=== PATIENT | male | born 1970 | race Caucasian/White ===

== ENCOUNTER → 2020-01-08 10:49 | Outpatient (CLI) | payer OTHER, SELFPAY ==
[2020-01-09 15:36] LABS: COVID19 Sendout Not Detected (Not Detected)
== END ==
PROVIDERS: Visit Provider Physician Assistant
DX: Z11.59 Encounter for screening for other viral diseases (principal)
CPT/HCPCS: 87635

== ENCOUNTER → 2022-08-08 12:11 | Outpatient (CLI) | payer OTHER, SELFPAY ==
--- NOTE | 2022-08-09 12:06 | PM.PFT.1 ---
Pulmonary Function Test Referral & Results Date Patient Seen: 08/08/22 Results: The spirometry demonstrates an FVC of 4.23 L which is 84% of predicted. The FEV1 was measured at 3.61 L which is 93% of predicted. The FEV1/FVC ratio was 85 which is 109% of predicted. Following the administration of bronchodilator there was no appreciable change. Lung volumes show an SVC of 4.57 L which is 94% of predicted. The diffusing capacity was measured at 34.94 which is 110% of predicted. The maximum voluntary ventilation was normal Interpretation: This study demonstrates normal pulmonary function
== END ==
PROVIDERS: PCP Registered Nurse; Referring Provider Registered Nurse; Visit Provider Registered Nurse
DX: R05.8 Other specified cough (principal); J98.8 Other specified respiratory disorders
CPT/HCPCS: 94060; 94726; 94729

== ENCOUNTER → 2022-08-17 11:13 | Outpatient (CLI) | payer OTHER, SELFPAY ==
--- NOTE | 2022-08-17 | DI.RAD.S_ITS ---
PROCEDURE: XR LUMBAR SPINE 2-3V INDICATIONS: LOW BACK PAIN TECHNIQUE: 3 views of the lumbar spine were acquired. COMPARISON: None. FINDINGS: Bones: 5 [id number] vertebrae are present. There is normal bony alignment. No vertebral body compression fractures. No suspicious bony lesions. Soft tissues: Overlying bowel gas pattern is normal. No suspicious soft tissue calcifications. IMPRESSION: Normal lumbar spine radiographs Approved by: Maximus Mcmullen M.D. on 08/17/2022 at 12:48
== END ==
PROVIDERS: PCP Registered Nurse; Referring Provider Chiropractor; Visit Provider Chiropractor
DX: M54.50 Low back pain, unspecified (principal)
CPT/HCPCS: 72100

== ENCOUNTER → 2022-09-10 08:55 | Outpatient (CLI) | payer OTHER, SELFPAY ==
--- NOTE | 2022-09-10 | DI.CT.S_ITS ---
PROCEDURE: CT ABDOMEN PELVIS W CON INDICATIONS: Pure hyperglyceridemia TECHNIQUE: After the administration of oral and intravenous contrast, axial sections were acquired from the lung bases to the pubic symphysis. Coronal and sagittal reformats were performed. For radiation dose reduction, the following was used: automated exposure control, adjustment of mA and/or kV according to patient size. COMPARISON:None. FINDINGS: Lung bases: No pleural effusion. ABDOMEN: Liver: Unremarkable. Gallbladder: Unremarkable. Biliary ducts: Unremarkable. Pancreas: Unremarkable. Spleen: Unremarkable. Adrenal Glands: Unremarkable. Kidneys and Ureters: No hydronephrosis. Stomach and Bowel: No bowel obstruction. Mild predominantly sigmoid colonic diverticulosis without evidence of acute diverticulitis. Peritoneum: No abnormal intraperitoneal fluid. No free air. Abdominal Nodes: No retroperitoneal or mesenteric adenopathy by size criteria. Vessels: Aorta and inferior vena cava are normal in size. PELVIS: Pelvic Organs: Unremarkable. Bladder: Unremarkable. Pelvic Nodes: No enlarged lymph nodes. Bones: Multilevel degenerative change of the visualized spine. IMPRESSION: No acute abnormality identified within the abdomen or pelvis. Dictated by: Hal Denney M.D. on 09/10/2022 at 14:58 Approved by: Hal Denney M.D. on 09/10/2022 at 15:22
== END ==
PROVIDERS: PCP Registered Nurse; Referring Provider Registered Nurse; Visit Provider Registered Nurse
DX: E78.1 Pure hyperglyceridemia (principal); K57.30 Diverticulosis of large intestine without perforation or abscess without bleeding; R74.8 Abnormal levels of other serum enzymes; E11.9 Type 2 diabetes mellitus without complications; R79.89 Other specified abnormal findings of blood chemistry
CPT/HCPCS: 74177; Q9967

== ENCOUNTER → 2022-09-19 13:29 | Outpatient (CLI) | payer OTHER, SELFPAY ==
--- NOTE | 2022-10-18 14:59 | DIAB.MNT ---
Initial Diabetes Medical Nutrition Therapy Assessment Name: Raul Conley Date: 09/19/22 Time: 205-315p Dx: Type II Diabetes Provider: Malcolm Carter presents for initial DM visit. Newly Dx with T2DM. Recent hgA1c of 7.6% per labs and TG of 1997. 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 Started end of last marcelle. Avoids CHO before bed due to h/o weight gain with large pasta portions pre bed. Taking above UL doses of vitamin D daily. Diet Recall: 4p: 2c cereal with 1c milk OR granola bar and berries 10p: nothing or grapes or fruit/ran bar 12-1a: cereal or leftovers: 1.5-2c pasta with sauce and chx 4a: cereal or tacos or burritos or pro with veg 730a: soups or salad Monica: water, tea/coffee, likes juice Anthropometrics: Ht: 5'11 Wt: 223# 08/2022 Weight history: reported UBW of 215-225# Physical Activity: PT for back, walks dog 60 min daily, stationary bike 45-60 min twice per week. Self-Monitoring Blood Glucose: None, no supplies. Diabetes Medications: 1500mg Metformin HS currently (rx up to 2000mg) Pertinent Labs: 08/2022 HgA1c: 7.6% ; cholesterol: 396 H T H Past Medical History: reported HTN, HLD, additional from referral: HTG, elevated liver enzymes Nutrition Rx: Carbohydrates: Meal: 45g Snack:15-30g Nutrition Diagnosis: - Nutrition and food related knowledge deficit r/t new dx DM aeb hgA1c and pt report- new - Self monitoring deficit r/t knowledge deficit aeb no SMBG Intervention: This participant was very receptive. Provided appropriate educational handouts. Discussed the following topics: Completed intake assessment. Discussed barriers to care. Pathophysiology of T2DM HgA1c, its correlation to blood glucose numbers, and rationale for goal Importance of self-monitoring, how often, and when to check. Suggested checking at different times to evaluate meals Plate Method, impact of macronutrients on blood sugar, meal timing, carbohydrate counting, pairing macronutrients and spreading out carbohydrates for better blood glucose management Recommended servings for carbohydrates at meals and snacks Heart health nutrition: fiber, cholesterol Brainstormed appropriate meal plan based on food preferences Role of physical activity Created SMART goals for patient self-care and success. Goals: Ask PCP for SMBG supplies Keep CHO to 1c at meals Continue Phys activity Follow-up: ANASTASIYA DUFFY follow-up in 2-3 weeks Sameera Melton RDN, TATI Certified Diabetes Care and Lining Setter P: [phone] Thank you for this referral
== END ==
PROVIDERS: Absent Provider Registered Nurse; Family Provider Registered Nurse; PCP Registered Nurse; Referring Provider Registered Nurse; Visit Provider Registered Nurse
DX: E11.9 Type 2 diabetes mellitus without complications (principal); Z79.84 Long term (current) use of oral hypoglycemic drugs; Z71.3 Dietary counseling and surveillance
CPT/HCPCS: 97802

== ENCOUNTER → 2022-10-03 09:05 | Outpatient (CLI) | payer OTHER, SELFPAY | PROVIDERS: Family Provider Registered Nurse; PCP Registered Nurse; Visit Provider Nurse Practitioner Family | DX: L98.9 Disorder of the skin and subcutaneous tissue, unspecified (principal) | CPT/HCPCS: 87070; 87205 ==

== ENCOUNTER → 2022-10-12 15:10 | Outpatient (CLI) | payer OTHER, SELFPAY ==
--- NOTE | 2022-10-18 15:12 | DIAB.MNTFU ---
Follow-up Diabetes Medical Nutrition Therapy Assessment Name: Raul Conley Date: 10/12/22 Time: 315-345p Dx: Type II Diabetes Raul presents for DM follow-up. Reports batch cooking quinoa and veggies. Cut out sugar. Denies cravings. Feels this diet is sustainable. Reports liberian yogurt frozen as dessert. Current abdominal infection, taking antibiotics. Diet recall indicates balanced portions and less cereal. Anthropometrics: No new wt Physical Activity: No change. Continues walking dog and bike. Self-Monitoring Blood Glucose: has supplies, but states he has not started checking yet. Diabetes Medications: 1500mg Metformin HS currently (rx up to 2000mg) Pertinent Labs: 08/2022 HgA1c: 7.6% ; cholesterol: 396 H T H Past Medical History: reported HTN, HLD, additional from referral: HTG, elevated liver enzymes Nutrition Rx: Carbohydrates: Meal: 45g Snack:15-30g Nutrition Diagnosis: - Nutrition and food related knowledge deficit r/t new dx DM aeb hgA1c and pt report- improved - Self monitoring deficit r/t knowledge deficit aeb no SMBG- in progress Intervention: This participant was very receptive. Provided appropriate educational handouts. Discussed the following topics: Dm complication risk reduction SMBG goals and recs Maintaining sustainable diet Meal planning and carb counting review Created SMART goals for patient self-care and success. Goals: Ask PCP for SMBG supplies- met Keep CHO to 1c at meals- met Continue Phys activity- met schedule eye exam- new Check BG 1-2 hours pc shake (reduce fruit prn)- new Check FBG- new Follow-up: ANASTASIYA DUFFY follow-up recommended. This RD will be on leave until Feb. Provided resources for support in the interim. Otherwise, f/u in Nov. Sameera Melton RDN, TATI Certified Diabetes Care and Cake Wringer P: [phone] Thank you for this referral
== END ==
PROVIDERS: Family Provider Registered Nurse; PCP Registered Nurse; Referring Provider Registered Nurse; Visit Provider Registered Nurse
DX: E11.9 Type 2 diabetes mellitus without complications (principal); Z79.84 Long term (current) use of oral hypoglycemic drugs; Z71.3 Dietary counseling and surveillance
CPT/HCPCS: 97803